=== PATIENT | male | born 1935 | race Two or more races ===

== ENCOUNTER 2021-10-11 15:10 | Emergency (ER) | payer OTHER ==
[~2021-10-11] VITALS: Ht 177.8 cm; Wt 81.6 kg
[2021-10-11 16:09] VITALS: BP_SYST 150
--- NOTE | 2021-10-11 16:14 | NUR ---
Patient to ER bed 1 to gown for evaluation. Side rails up. Report given to Rich ZHAO.
--- NOTE | 2021-10-11 16:15 | NUR ---
ER at bedside examining patient.
[2021-10-11] MEDS ORDERED: TAMS-11 PO (16:23)
[2021-10-11] MEDS ORDERED: CARV6.2554 PO (16:23)
[2021-10-11] MEDS ORDERED: ASPI-1077 PO (16:23)
[2021-10-11] MEDS ORDERED: LIP40 PO (16:23)
--- NOTE | 2021-10-11 16:26 | NUR ---
BIB FAMILY WITH C/C OF LAST 3 DAYS OF ALOC AND UNSTEADY GAIT. PT AAO X 2, DOES NOT KNOW WHY HE IS HERE OR DATE AND TIME. REORIENTED TO TIME AND SITUATION. PLACED ON THEATRE PROFESSOR WITH NSR NOTED. ON ROOM AIR WITH 94% O2 SAT. HX OF HTN, HYPERCHOLESTEROLEMIA, ENLARGED PROSTATE, AND UT IN 2019. PRESENTS WITH MIDSTERNAL SURGICAL SCAR, PT UNSURE OF WHAT SURGERY HE HAD DONE. DR. OWENS AT BS AND ASSESSED PT. UPDATED MD ON PURPOSE OF VISIT. LABS DRAWN BY TECH. PENDING FURTHER ORDERS. WILL CONT TO MONITOR.
[2021-10-11 16:41] LABS: HEMATOCRIT 36.6 % (36-54); HEMOGLOBIN 12.4 g/dL (14.0-18.0); MEAN CORPUSCULAR HEMOGLOBIN 30 pg (27-31); MEAN CORPUSCULAR HGB CONC 34 % (32-36); WHITE BLOOD COUNT (AUTO) 4.8 K/uL (4.8-10.8)
[2021-10-11 16:46] LABS: BASOPHILS % (AUTO) 0.3 % (0.0-2.0); LYMPHOCYTES # (AUTO) 0.8 K/uL (1.0-5.5); MEAN CORPUSCULAR VOLUME 89 fL (79.0-98.0); MONOCYTES # (AUTO) 0.6 K/uL (0.0-1.0); MONOCYTES % (AUTO) 13.4 % (1.7-9.3); NEUTROPHILS # (AUTO) 3.3 K/uL (1.8-7.7); NEUTROPHILS % (AUTO) 69.3 % (40.0-70.0); PLATELET COUNT (AUTO) 116 K/uL (130-430); RED BLOOD CELL COUNT(AUTO) 4.13 MIL/uL (4.2-6.2); RED CELL DISTRIBUTION WIDTH 13.9 % (9.0-15.0)
[2021-10-11 17:07] LABS: ANION GAP 5 (5-15); CALCIUM 7.9 mg/dL (8.4-11.0); CHLORIDE 95 mmol/L (98-107); CREATININE 0.93 mg/dL (0.55-1.30); GLUCOSE 95 mg/dL (70-99); SODIUM SERUM 130 mmol/L (136-145); UREA NITROGEN, BLOOD 13 mg/dL (8-21)
[2021-10-11 17:16] LABS: ALANINE AMINOTRANSFERASE 36 U/L (12-78); ASPARTATE AMINOTRANSFERASE 42 U/L (10-37); TOTAL BILIRUBIN 0.6 mg/dL (0.0-1.0)
[2021-10-11 17:20] LABS: ALCOHOL, BLOOD < 3 mg/dL (<10)
[2021-10-11 17:32] LABS: BILIRUBIN,URINE NEGATIVE (NEGATIVE); CLARITY/URINE CLEAR (CLEAR); COLOR,URINE YELLOW (YELLOW); GLUCOSE,URINE NEGATIVE (NEGATIVE); KETONES,URINE TRACE (NEGATIVE); LEUKOCYTE ESTERASE ,URINE NEGATIVE (NEGATIVE); NITRITE, URINE NEGATIVE (NEGATIVE); PROTEIN URINE NEGATIVE (NEGATIVE); UROBILINOGEN,URINE 0.2 (0.2-1.0)
[2021-10-11 17:47] LABS: BLOOD, URINE TRACE (NEGATIVE)
[2021-10-11 17:50] LABS: BACTERIA,URINE None Seen /HPF (None Seen); MUCUS,URINE None Seen /LPF (None Seen); RBC,URINE 0-3 /HPF (0-3); WBC,URINE NONE SEEN /HPF (0-3)
[2021-10-11 18:32] LABS: BARBITURATE, URINE NEGATIVE (NEG <=200); BENZODIAZEPINE, URINE NEGATIVE (NEG <=150); CANNABINOID, URINE NEGATIVE (NEG <=50); COCAINE, URINE NEGATIVE (NEG <=150); METHAMPHETAMINES SCREEN,URINE NEGATIVE (NEG <=500); OPIATE, URINE NEGATIVE (NEG <=100); PHENCYCLIDINE SCREEN,URINE NEGATIVE (NEG <=25); UR TRICYCLIC ANTIDEPRESSANTS NEGATIVE (NEG <=300); URINE AMPHETAMINE NEGATIVE (NEG <=500); URINE METHADONE NEGATIVE (NEG <=200); URINE OXYCODONE SCREEN NEGATIVE (NEG <=100); URINE PROPOXYPHENE SCREEN NEGATIVE (NEG <=300)
--- NOTE | 2021-10-11 19:15 | NUR ---
ASSUME CARE OF PT BY ARTEM ZHAO IN BED 1, PT BIB FOR ALTERED X3 DAYS AND UNSTEADY GAIT, PT LAYING IN BED ON THE ICT SYSTEMS TEST ENGINEER, PT A/O X 3, PT DENIES ANY DISCOMFORT OR PAIN, HX- HTN AND CT, PT WAITING FOR DISPO.
--- NOTE | 2021-10-11 20:20 | NUR ---
SPOKE TO MASOOD ON THE PHONE REGARDING EVALUATION. IS ON HER WAY TO RECONSTRUCTIVE SURGEON HER . PT DRESSED AND WANTS TO SIT IN A CHAIR WHILE ARRIVES.
--- NOTE | 2021-10-11 20:50 | NUR ---
Patient AND given written and verbal discharge instructions and verbalizes understanding. ER MD discussed with patient the results and treatment provided. Patient in stable condition. ID arm band removed. IV catheter removed intact and dressing applied, no active bleeding. Patient educated to follow up with PMD. Pain Scale 0. Opportunity for questions provided and answered. Medication side effect fact sheet provided. ARRIVED TO ECOSYSTEM ECOLOGY PROFESSOR PT, ALSO INSTRUCTED REGARDING DISCHARGED WITH CONSENT FROM PT. PT AMBULATED OUT ER WITH UPRIGHT GAIT WITH , NO DISTRESS OBSERVED.
[2021-10-11 21:07] VITALS: BP_SYST 155
== END 2021-10-11 21:07 | disposition home or self-care (01) ==
LOC: EDBD 15:10 → EDSEX 15:10 → SED 15:10
DX: R42 Dizziness and giddiness (principal); R41.82 Altered mental status, unspecified; I10 Essential (primary) hypertension; Z88.0 Allergy status to penicillin; Z79.899 Other long term (current) drug therapy
CPT/HCPCS: 99285; 70450; 71045; 80307; 80053; 82140; 85025; 84484; 36415; 93005; 76376; 81000; G0482

== ENCOUNTER 2022-03-05 13:18 | Emergency (ER) | payer OTHER ==
[~2022-03-05] VITALS: Ht 170.2 cm; Wt 72.6 kg
[~2022-03-05 13:18] MED LIST: ASPI-1077 PO; CARV6.2554 PO; LIP40 PO; TAMS-11 PO
[2022-03-05 13:24] VITALS: BP_SYST 164
--- NOTE | 2022-03-05 13:30 | NUR ---
PATIENT BIB AT THIS TIME FOR CVA LIKE SYMPTOMS. PATIENT'S STATES THAT PATIENT HAS A HISTORY OF DEMENTIA. HOWEVER, THIS AM PATIENT APPEARED MORE CONFUSED AND UNABLE TO CONCENTRATE. PATIENT ALERT AND ORIENTED X 1, TO CT SCAN AT THIS TIME. PATIENT HAS NO EXTREMITY DEFICIT AT THIS TIME, NO DRIFT ON UPPER AND LOWER EXTREMITY. NSR ON THE MONITOR AT THIS TIME.
[2022-03-05] MEDS ORDERED: iohexoL 350 mgI/mL, 100 ML INFUS..BTL IV ONE (13:38)
--- NOTE | 2022-03-05 14:10 | NUR ---
CTA HEAD AND NECK AND CT BRAIN COMPLETED, CHEST XRAY AND EKG COMPLETED
--- NOTE | 2022-03-05 14:29 | NUR ---
urine sent to lab
[2022-03-05 14:35] LABS: EOSINOPHILS # (AUTO) 0.1 K/uL (0.0-0.4); HEMOGLOBIN 13.7 g/dL (14.0-18.0); LYMPHOCYTES # (AUTO) 1.4 K/uL (1.0-5.5); MONOCYTES # (AUTO) 0.5 K/uL (0.0-1.0)
[2022-03-05 14:40] LABS: BASOPHILS % (AUTO) 0.4 % (0.0-2.0); EOSINOPHILS % (AUTO) 1.3 % (0.0-4.0); HEMATOCRIT 39.8 % (36-54); MEAN CORPUSCULAR HEMOGLOBIN 31 pg (27-31); MEAN CORPUSCULAR HGB CONC 34 % (32-36); MEAN CORPUSCULAR VOLUME 89 fL (79.0-98.0); MONOCYTES % (AUTO) 6.6 % (1.7-9.3); NEUTROPHILS # (AUTO) 5.3 K/uL (1.8-7.7); NEUTROPHILS % (AUTO) 72.7 % (40.0-70.0); PLATELET COUNT (AUTO) 182 K/uL (130-430); RED BLOOD CELL COUNT(AUTO) 4.46 MIL/uL (4.2-6.2); RED CELL DISTRIBUTION WIDTH 13.4 % (9.0-15.0); WHITE BLOOD COUNT (AUTO) 7.2 K/uL (4.8-10.8)
[2022-03-05 14:47] LABS: ANION GAP 7 (5-15); CALCIUM 8.6 mg/dL (8.4-11.0); CHLORIDE 101 mmol/L (98-107); CREATININE 0.81 mg/dL (0.55-1.30); GLUCOSE 92 mg/dL (70-99); UREA NITROGEN, BLOOD 8 mg/dL (8-21)
[2022-03-05 14:56] LABS: ALANINE AMINOTRANSFERASE 13 U/L (12-78); ALBUMIN 3.7 g/dL (3.4-4.8); ASPARTATE AMINOTRANSFERASE 21 U/L (10-37); TOTAL BILIRUBIN 0.7 mg/dL (0.0-1.0)
[2022-03-05 15:04] VITALS: BP_SYST 155
[2022-03-05 15:14] LABS: BILIRUBIN,URINE NEGATIVE (NEGATIVE); BLOOD, URINE NEGATIVE (NEGATIVE); CLARITY/URINE CLEAR (CLEAR); COLOR,URINE YELLOW (YELLOW); GLUCOSE,URINE NEGATIVE (NEGATIVE); KETONES,URINE NEGATIVE (NEGATIVE); LEUKOCYTE ESTERASE ,URINE NEGATIVE (NEGATIVE); NITRITE, URINE NEGATIVE (NEGATIVE); PROTEIN URINE NEGATIVE (NEGATIVE); UROBILINOGEN,URINE 0.2 (0.2-1.0)
[2022-03-05 15:25] LABS: BARBITURATE, URINE NEGATIVE (NEG <=200); BENZODIAZEPINE, URINE NEGATIVE (NEG <=150); CANNABINOID, URINE NEGATIVE (NEG <=50); COCAINE, URINE NEGATIVE (NEG <=150); METHAMPHETAMINES SCREEN,URINE NEGATIVE (NEG <=500); OPIATE, URINE NEGATIVE (NEG <=100); PHENCYCLIDINE SCREEN,URINE NEGATIVE (NEG <=25); UR TRICYCLIC ANTIDEPRESSANTS NEGATIVE (NEG <=300); URINE AMPHETAMINE NEGATIVE (NEG <=500); URINE METHADONE NEGATIVE (NEG <=200); URINE OXYCODONE SCREEN NEGATIVE (NEG <=100); URINE PROPOXYPHENE SCREEN NEGATIVE (NEG <=300)
[2022-03-05 15:52] LABS: ACETAMINOPHEN < 1 ug/mL (1-30); ALCOHOL, BLOOD < 3 mg/dL (<10); C-REACTIVE PROTEIN QUANT < 0.2 mg/dL (0-0.5)
[2022-03-05 16:05] LABS: ACETONE, SERUM NEGATIVE (NEGATIVE)
--- NOTE | 2022-03-05 17:24 | NUR ---
Patient given written and verbal discharge instructions and verbalizes understanding. ER MD discussed with patient the results and treatment provided. Patient in stable condition. ID arm band removed. IV catheter removed intact and dressing applied, no active bleeding. Rx of given. Patient educated on pain management and to follow up with PMD. Pain Scale . Opportunity for questions provided and answered. Medication side effect fact sheet provided.
--- NOTE | 2022-03-05 18:50 | NUR ---
REPORT CALLED TO YOUSUF AT THIS TIME
== END 2022-03-05 19:30 | disposition short-term general hospital (02) ==
LOC: SED 13:18
DX: I66.21 Occlusion and stenosis of right posterior cerebral artery (principal); I63.9 Cerebral infarction, unspecified; R53.1 Weakness; R41.0 Disorientation, unspecified; I11.0 Hypertensive heart disease with heart failure; I50.9 Heart failure, unspecified; Z79.899 Other long term (current) drug therapy; Z20.822 Contact with and (suspected) exposure to COVID-19
CPT/HCPCS: 99285; 70496; 71045; 87426; 80307; 80053; 82009; 82140; 82550; 85025; 86140; 84484; 36415; 93005; 70498; 83605; 81003; 70450; 76376; G0482; Q9967; G0480; G0481